=== PATIENT | male | born 1960 | race Caucasian/White ===

== ENCOUNTER 2016-07-22 16:17 | Emergency (ER) | payer BC, SELFPAY ==
[2016-07-22] MEDS ORDERED: KETOROLAC 30 MG/ML VIAL (J1885) IV ONE (16:45)
[2016-07-22] MEDS ORDERED: ONDANSETRON 4MG/2ML VIAL (J2405) IV ONE (16:45)
[2016-07-22] MEDS: MORPHINE 4 MG/ML 1ML SYRINGE IV PRN ×2 (16:59→18:21)
[2016-07-22 17:11] LABS: BASO % 0.5 % (0.0-1.0); EOS # 0.1 K/mm3 (0.0-0.50); EOS % 1.1 % (0.0-3.0); LARGE UNSTAINED CELL # 0.1 K/mm3 (0.0-0.4); LARGE UNSTAINED CELL % 1.6 % (0.0-4.0); LYMPH # 1.7 K/mm3 (1.5-4.5); LYMPH % 28.8 % (24.0-44.0); MEAN CORPUSCULAR HEMOGLOBIN 31.1 pg (27.0-33.0); MEAN CORPUSCULAR HGB CONC 35.1 g/dl (32.0-36.5); MEAN CORPUSCULAR VOLUME 88.5 fl (80.0-96.0); MONO # 0.3 K/mm3 (0.0-0.8); MONO % 5.5 % (0.0-5.0); NEUTROPHILS # 3.6 K/mm3 (1.8-7.7); NEUTROPHILS % 62.5 % (36.0-66.0); PLATELET COUNT, AUTOMATED 176 k/mm3 (150-450); RED CELL DISTRIBUTION WIDTH 12.6 % (11.5-14.5); WHITE BLOOD COUNT 5.8 K/mm3 (4.0-10.0)
[2016-07-22 17:23] LABS: INR 0.97
[2016-07-22 17:24] LABS: ALBUMIN 4.3 GM/DL (3.2-5.2); ALBUMIN/GLOBULIN RATIO 1.39 (1.00-1.93); ALKALINE PHOSPHATASE 106 U/L (45-117); ALT/SGPT 70 U/L (12-78); ANION GAP 8 MEQ/L (8-16); AST/SGOT 36 U/L (15-37); BILIRUBIN,DIRECT 0.2 MG/DL (0.0-0.2); BILIRUBIN,TOTAL 1.1 MG/DL (0.2-1.0); BLOOD UREA NITROGEN 15 MG/DL (7-18); CALCIUM LEVEL 9.3 MG/DL (8.5-10.1); CARBON DIOXIDE LEVEL 27 MEQ/L (21-32); CHLORIDE LEVEL 105 MEQ/L (98-107); CREATININE FOR GFR 1.17 MG/DL (0.70-1.30); GLOMERULAR FILTRATION RATE > 60.0 (>56); GLUCOSE, FASTING 139 MG/DL (70-105); SODIUM LEVEL 140 MEQ/L (136-145); TOTAL PROTEIN 7.4 GM/DL (6.4-8.2)
[2016-07-22 17:59] VITALS: BP 155/101
--- NOTE | 2016-07-22 18:06 | REP ---
CT ABDOMEN AND PELVIS WITHOUT CONTRAST: CT abdomen and pelvis was performed without oral or IV contrast. Sagittal and coronal reconstruction images are performed. Visualized lung bases demonstrate mild dependent atelectatic changes. The liver demonstrates diffuse fatty infiltration. A couple of tiny calcified granulomas are seen in the spleen. The adrenals and pancreas are grossly unremarkable. Two adjacent subcentimeter calculi are seen in the mid right renal collecting system. Tiny calculus is seen in the left upper pole collecting system and a марина like calcification is seen in the lower pole collecting system on the left. There is mild left hydroureteronephrosis caused by a 4 mm stone in the distal left ureter. No bladder calculi are seen. The urinary bladder is collapsed and not optimally evaluated. There is no abdominal aortic aneurysm with mild scattered atherosclerotic calcifications. There is no adenopathy. There is no free air or free fluid. There is no bowel wall thickening. There is no evidence of appendicitis. There appears to be surgical mesh in the anterior abdominal wall. There is no evidence of a pelvic mass. IMPRESSION: There is a 4 mm calculus in the distal left ureter causing mild left hydroureteronephrosis. Two intrarenal calcifications are seen bilaterally as well. There is no evidence of appendicitis. No free air or free fluid. Signed by Sukumar Gamez MD 07/23/2016 07:42 P
[2016-07-22] MEDS ORDERED: ZOFR4TAB3 PO (18:21)
[2016-07-22] MEDS ORDERED: FLOM5CAP PO (18:21)
[2016-07-22] MEDS ORDERED: PERC5TAB6 PO (18:21)
[2016-07-26] MEDS ORDERED: OXYB5TA PO (07:59)
[2016-07-26] MEDS ORDERED: LEVO500T32 PO (10:30)
== END 2016-07-22 19:05 | disposition home or self-care (01) ==
LOC: M ED 16:44
DX: N13.2 Hydronephrosis with renal and ureteral calculous obstruction (principal); N23 Unspecified renal colic
CPT/HCPCS: 74176; 80048; 80076; 81001; 83690; 85025; 85610; 87086; 96374; 96375; 96376; 99283; J1885; J2405

== ENCOUNTER 2016-07-24 14:32 | Inpatient (IN) | payer BC ==
[~2016-07-24] VITALS: Ht 177.8 cm; Wt 100.4 kg
[2016-07-24] MEDS: TAMSULOSIN 0.4 MG CAP PO SCH (09:00)
[~2016-07-24 14:32] MED LIST: FLOM5CAP PO; PERC5TAB12 PO; ZOFR4TAB3 PO
[2016-07-24] MEDS ORDERED: MORPHINE 4 MG/ML 1ML SYRINGE IV ONE (15:15)
[2016-07-24] MEDS ORDERED: NS 1,000 ML IV ONE (15:15)
[2016-07-24 15:37] LABS: BASO % 0.2 % (0.0-1.0); EOS # 0.1 K/mm3 (0.0-0.50); EOS % 0.6 % (0.0-3.0); LARGE UNSTAINED CELL # 0.1 K/mm3 (0.0-0.4); LARGE UNSTAINED CELL % 0.5 % (0.0-4.0); LYMPH # 0.8 K/mm3 (1.5-4.5); LYMPH % 6.1 % (24.0-44.0); MEAN CORPUSCULAR HEMOGLOBIN 30.6 pg (27.0-33.0); MEAN CORPUSCULAR HGB CONC 34.8 g/dl (32.0-36.5); MEAN CORPUSCULAR VOLUME 87.8 fl (80.0-96.0); MONO # 0.5 K/mm3 (0.0-0.8); MONO % 4.7 % (0.0-5.0); NEUTROPHILS # 10.2 K/mm3 (1.8-7.7); NEUTROPHILS % 87.9 % (36.0-66.0); PLATELET COUNT, AUTOMATED 146 k/mm3 (150-450); RED CELL DISTRIBUTION WIDTH 12.8 % (11.5-14.5); WHITE BLOOD COUNT 11.6 K/mm3 (4.0-10.0)
--- NOTE | 2016-07-24 15:58 | REP ---
CT ABDOMEN AND PELVIS WITHOUT CONTRAST: CT abdomen and pelvis performed without oral or IV contrast, with sagittal and coronal reconstruction images performed. Comparison made with prior study of 07/22/2016. In the visualized lungs bases there are no areas of streaky atelectasis/infiltrate posteriorly. Liver demonstrates diffuse fatty infiltration. Spleen demonstrates a couple of tiny calcified granulomas. The adrenals and pancreas appear unremarkable. Right kidney demonstrates intrarenal calculi unchanged. Left kidney demonstrates mild hydronephrosis and there is also mild left hydroureter. This has mildly increased since the prior study of 07/22/2016. 4 mm calculus in the distal left ureter has not changed in position. There is new moderate degree or perinephric and periureteral inflammation and edema. No bladder calculus is seen. No bowel thickening is seen. The appendix is normal. IMPRESSION: New mild bibasilar atelectasis/infiltrate. 4 mm stone in the distal left ureter has not changed in position. There is mild increase in the mild hydroureteronephrosis. There is new streaky inflammation and edema around the left kidney and ureter. Signed by Sukumar Gamez MD 07/24/2016 04:31 P
[2016-07-24 15:59] LABS: ALBUMIN 4.1 GM/DL (3.2-5.2); ALBUMIN/GLOBULIN RATIO 1.41 (1.00-1.93); ALKALINE PHOSPHATASE 96 U/L (45-117); ALT/SGPT 48 U/L (12-78); ANION GAP 6 MEQ/L (8-16); AST/SGOT 18 U/L (15-37); BILIRUBIN,DIRECT 0.5 MG/DL (0.0-0.2); BILIRUBIN,TOTAL 2.1 MG/DL (0.2-1.0); BLOOD UREA NITROGEN 19 MG/DL (7-18); CALCIUM LEVEL 8.9 MG/DL (8.5-10.1); CARBON DIOXIDE LEVEL 29 MEQ/L (21-32); CHLORIDE LEVEL 103 MEQ/L (98-107); CREATININE FOR GFR 1.81 MG/DL (0.70-1.30); GLOMERULAR FILTRATION RATE 41.5 (>56); GLUCOSE, FASTING 136 MG/DL (70-105); POTASSIUM SERUM 4.2 MEQ/L (3.5-5.1); SODIUM LEVEL 138 MEQ/L (136-145)
[2016-07-24 16:58] LABS: FREE T4 0.94 NG/DL (0.76-1.46); PHOSPHORUS LEVEL 3.1 MG/DL (2.5-4.9)
--- NOTE | 2016-07-24 17:05 | REP ---
Chest one-view HISTORY: Congestive heart failure Comparison: None The lungs are clear. The heart is upper limits of normal in size. The pulmonary vasculature is normal in appearance. Impression: No acute disease. Signed by Garcia Nuñez MD 07/24/2016 04:57 P
[2016-07-24] MEDS ORDERED: OXYC1TAB23 PO (17:09)
[2016-07-24] MEDS ORDERED: FLOM5CAP PO (17:09)
[2016-07-24] MEDS ORDERED: ONDA4TAB6 PO (17:09)
--- NOTE | 2016-07-24 17:25 | SMCUROLCON ---
Urology Consultation General Date of Consultation 07/24/16 Reason For Consultation This patient is seen for Hydroureteronephrosis. History of Present Illness This is a 56 y/o M w/ a PMH significant for kidney stones (s/p ureteroscopy w/ laser lithotripsy about 5 years ago), coming in to the ER for the second time in a week w/ severe left flank pain. He came in 2 days ago and was found to have a 4mm obstructing distal left ureteral stone w/ mild hydroureteronephrosis. He was sent home w/ pain meds and flomax. He never passed the stone. He notes that today the pain worsened and that he has not been able to keep any food down for 2 days. He denies dysuria. He denies hematuria. His urine culture from 2 days ago was negative. Of note, while in the ED, he had a run of V tach. The patient denies chest pain or SOB. He does note that he has had chest pain a few times in the past. He has never had it worked up. Past Medical History Medical History kidney stones Surgical Hstory ureteroscopy, hernia repair Medications Current Medications Current Medications Home Med (Med Rec Complete!) ASDIRECTED XX ; Start 07/24/16 at 17:15; Stop at 17:15; Status DC Allergies Allergies: Coded Allergies: No Known Allergies (Unverified , 07/22/16) Review of Systems Constitutional: Denies: Fever, Chills, Sweats Skin: Denies: Rash, Lesions, Breakdown, Nail Changes Pulmonary: Denies: Dyspnea, Cough Cardiovascular: Denies Chest Pain Gastrointestinal: Reports: Nausea, Abdominal Pain Genitourinary: Denies: Dysuria, Frequency, Incontinence, Hematuria Musculoskeletal: Reports: Back Pain Psych: Reports: Mood Normal Physical Examination General Exam: Alert, Cooperative, No Acute Distress ENT EXAM: Atraumatic Chest Exam: Clear to auscultation Heart Exam: Rate Normal Abdomen Exam: Soft, Tenderness (diffuse abdominal tenderness) Skin Exam: Nl turgor and temperature Neuro Exam: Normal Speech Psych Exam: Mental status NL, Mood NL Vital Signs/I&O Vital Signs Date Time Temp Pulse Resp B/P (MAP) Pulse Ox O2 Delivery O2 Flow Rate FiO2 07/24/16 15:48 16 07/24/16 15:00 07/24/16 14:44 98.3 77 95 Room Air Laboratory Data 24H Labs Laboratory Tests 2 07/24/16 15:27: White Blood Count 11.6H, Red Blood Count 4.46, Hemoglobin 13.6L, Hematocrit 39.2L, Mean Corpuscular Volume 87.8, Mean Corpuscular Hemoglobin 30.6, Mean Corpuscular Hemoglobin Concent 34.8, Red Cell Distribution Width 12.8, Platelet Count 146L, Neutrophils (%) (Auto) 87.9H, Lymphocytes (%) (Auto) 6.1L, Monocytes (%) (Auto) 4.7, Eosinophils (%) (Auto) 0.6, Basophils (%) (Auto) 0.2, Neutrophils # (Auto) 10.2H, Lymphocytes # (Auto) 0.8L, Monocytes # (Auto) 0.5, Eosinophils # (Auto) 0.1, Basophils # (Auto) 0.0, Large Unclassified Cells % 0.5 , Large Unclassified Cells # 0.1, Anion Gap 6L, Glomerular Filtration Rate 41.5L , Calcium Level 8.9, Phosphorus Level 3.1, Magnesium Level 2.0, Aspartate Amino Transf (AST/SGOT) 18, Alanine Aminotransferase (ALT/SGPT) 48, Alkaline Phosphatase 96, Total Bilirubin 2.1#H, Direct Bilirubin 0.5H, Troponin I < 0.02 , Total Protein 7.0, Albumin 4.1, Albumin/Globulin Ratio 1.41, Lipase 147, Thyroid Stimulating Hormone (TSH) 0.785, Free Thyroxine 0.94 CBC/BMP Laboratory Tests 07/24/16 15:27 Red Blood Count 4.46, Mean Corpuscular Volume 87.8, Mean Corpuscular Hemoglobin 30.6, Mean Corpuscular Hemoglobin Concent 34.8, Red Cell Distribution Width 12.8 , Neutrophils (%) (Auto) 87.9 H, Lymphocytes (%) (Auto) 6.1 L, Monocytes (%) ( Auto) 4.7, Eosinophils (%) (Auto) 0.6, Basophils (%) (Auto) 0.2, Neutrophils # ( Auto) 10.2 H, Lymphocytes # (Auto) 0.8 L, Monocytes # (Auto) 0.5, Eosinophils # (Auto) 0.1, Basophils # (Auto) 0.0 Assessment This is a 56 y/o M w/ an obstructing 4mm distal left ureteral stone w/ a bump in Cr to 1.8 from 1.2 a few days ago and V tach. I explained to the patient that he will need surgery for the stone, but we will await medical and possible cardiac clearance given the run of V tach. Plan - agree w/ admission to hospitalist service for medical and possible cardiac clearance - morphine/percocet prn pain - please strain all urine - continue flomax - keep patient hydrated - NPO at midnight - possible OR tomorrow for cystoscopy, left ureteroscopy w/ laser lithotripsy and left ureteral stent placement pending clearance THUY NGUYEN MD Jul 24, 2016 17:25
[2016-07-24] MEDS ORDERED: BISACODYL 5 MG TAB PO PRN (17:30)
[2016-07-24] MEDS ORDERED: ACETAMINOPHEN TAB 650MG DOSE (2X325MG) PO PRN (17:30)
[2016-07-24] MEDS: MORPHINE 2 MG/ML 1ML SYRINGE IV PRN ×2 (18:15→23:48)
[2016-07-24 18:54] VITALS: BP 168/94
[2016-07-24 19:35] VITALS: BP 161/87
--- NOTE | 2016-07-24 21:05 | HPE ---
DATE OF ADMISSION: 07/24/2016 PRIMARY CARE PHYSICIAN: Patient has no primary care physician (PCP). CHIEF COMPLAINT: Left testicular and inguinal pain as well as back pain. HISTORY OF PRESENT ILLNESS: Mr. Brownlee is a 56-year-old male with no past medical history who presented to emergency room (ER) due to experiencing severe left testicular and inguinal pain as well back. Patient expressed that his symptoms started on Thursday with instant severe pain (10/10) on the left testicle as well as left inguinal area. Patient expressed that due to severity of the pain, he came to the ER. On the same day, CT of abdomen and pelvis without contrast indicated a 4 mm calculus in the distal left ureter, causing mild left hydroureter. Patient was discharged home with Zofran as well as Percocet 5/325 and Flomax. Patient expressed that after taking Percocet he felt better; however , patient started again at 4 p.m. yesterday with instant pain of 10/10 in the left testicular and inguinal area. Also patient has been experiencing bilateral lower back pain. Patient expressed that the pain was increased and decreased throughout the day. Patient expressed that he could not sleep last night due to the pain, and patient could not tolerate the pain, therefore came to the ER. Patient denies hematuria, anuria, or polyuria; however, patient expressed that he has been experiencing fevers, chills, and night sweats. Patient denies palpitations, racing or skipping heartbeat. Patient denies syncope, seizure-type activities, or lightheadedness or dizziness. Patient denies sick contacts. Patient denies pain with urination. Patient also expressed that he has lost his appetite and cannot tolerate food due to the pain. ALLERGIES: No known allergies. PAST MEDICAL HISTORY: One episode of chest pain a long time ago. SURGERIES: 1. Patient had umbilical hernia repair. 2. Left inguinal hernia repair. 3. Right inguinal hernia repair. PAST MEDICAL HISTORY: None. SOCIAL HISTORY: Patient is from [place] and lives with his , his son, and his daughter. Patient denies history of smoking cigarettes or using tobacco products. Patient also denies illicit drug use; however, expressed that he drinks alcohol occasionally. 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 FAMILY HISTORY: Patient's son and daughter are healthy. Patient has eight sisters and one brother. Patient's older sister has abdominal cancer; however, the other sisters and brother are healthy. Patient's father due to Alzheimer. Patient's mother is still alive and healthy for her age. MEDICATIONS: - Zofran 4 mg by mouth every 4 hours as needed for nausea - Percocet 5/325 one tablet by mouth every 6 hours as needed for pain - Flomax 0.4 mg by mouth daily REVIEW OF SYSTEMS: GENERAL: Patient expressed that has been experiencing fevers, chills, night sweats; however, patient denies weight loss or weight gain. HEENT: Patient denies acute vision or hearing changes. Patient denies headache, lightheadedness, or dizziness. Patient also denies problem with chewing food or sinusitis. NECK: Patient denies lumps, bumps, or decreased range of motion of his neck. HEART: Patient denies palpitations, racing or skipping heartbeat, or chest pain. LUNGS: Patient denies shortness of breath, coughing, or wheezing. ABDOMEN: Patient expressed that he has been experiencing lower abdominal pain, especially in the left inguinal area, close to the left lower quadrant and left inguinal area. Patient denies nausea, vomiting, diarrhea, constipation, melena, hematochezia, hemoptysis; however, patient expressed that he has lost his appetite. NEUROLOGIC: Patient denies history of transient ischemic attack (TIA), seizure-type activities. PHYSICAL EXAMINATION: VITAL SIGNS: Temperature 98.3, pulse 77, respiratory rate 18, blood pressure 155/83, pulse oximetry 95 on room air. GENERAL APPEARANCE: Patient was lying in bed in acute distress due to pain. Patient was awake, alert, and oriented to time, place, and person. HEENT: Normocephalic, atraumatic. Pupils were equal and reactive to light. Oral mucosa was moist. NECK: Soft, supple. No lymphadenopathy. No thyromegaly. No jugular venous distention (JVD). HEART: Regular rate and rhythm, normal S1, S2. LUNGS: Clear breath sounds bilaterally. Good air movement. ABDOMEN: Soft, tender to palpation mostly on the lower abdominal quadrants. Positive bowel sounds in all quadrants. EXTREMITIES: No lower extremity edema. +2 pulses in both lower extremities. Patient has decreased range of motion of the left lower extremity compared to right lower extremity due to testicular and inguinal pain. BACK: Patient has tenderness to palpation on the left lower back compared to right in the lumbar area. NEUROLOGIC: Cranial nerves II-XII were intact. No focal deficiencies. LABORATORY DATA: White blood cells 11.6, red blood cells 4.46, hemoglobin 13.6, hematocrit 39.2, MCV 87.8, MCH 30.6, MCHC 34.8, RDW 12.8, platelet count 146, neutrophil percentage 87.9, lymphocyte percentage 3.1, monocyte percentage 4.7, eosinophil percentage 0.6, basophil percentage 0.2, leukocyte percentage 0.5. Sodium 138, potassium 4.2, chloride 103, carbon dioxide 29, anion gap 6, BUN 19, creatinine 1.81, glomerular filtration rate 41.5, fasting glucose 136, calcium 8.9, phosphorus 3.1, magnesium 2. Total bilirubin 2.1, direct bilirubin 0.5, AST 18, ALT 48, alkaline phosphatase 96. Troponin I less than 0.02. Total protein 7, albumin 4.1, lipase 147. TSH 0.785, free T4 of 0.94. Blood culture is pending. Chest x-ray indicated no acute disease. CT of abdomen and pelvis without contrast shows new mild bibasilar atelectasis/infiltration, 4 mm stone in the distal left ureter and has not changed in position compared to previous study, which was done on 07/22/2016. There is a mild increase in the mild hydroureteronephrosis. ASSESSMENT AND PLAN: 1. Left hydroureteronephrosis. This is possibly secondary to a stone in the distal left ureter. Dr. Gama has been consulted by ER, who has seen the patient. During ER stay, patient had episodes of tachycardia. Dr. Gama expressed that if patient is not cleared for procedure, patient may have to receive a stent tomorrow. At this time we will make the patient nothing by mouth after midnight. Patient is also on intravenous (IV) fluid. Patient's urinalysis (UA), which was performed on 07/22/2016 as well as urine culture, did not indicate bacterial infection. Based on recommendation from Dr. Gama, we have not started patient on any antibiotic at this time; however, we have ordered UA and urine culture for this visit, and the result is pending at this time. Also, we will manage the pain with Percocet, morphine. Also we will continue patient on Flomax. 2. Leukocytosis. This is possibly secondary to stress; however, we have ordered UA and urine culture as well as blood culture. Result is pending at this time. No antibiotic is indicated. 3. Acute renal failure. This is possibly secondary to postrenal azotemia due to obstructing stone. At this point, we will continue IV fluid. Patient will be nothing by mouth from midnight for tomorrow's procedure; however, if patient is not cleared per cardiology, patient will receive the stent. 4. Cardiac arrhythmia. During the ER stay, patient had about 18 beats of ventricular tachycardia. This event has been recorded; however, EKG shows sinus rhythm with the possible old inferior myocardial infarction. Based on patient's history, he had one episode of chest pain several years ago, and they have done further investigation in [place], including a stress test and according to him everything was negative. The first set of cardiac markers was negative. We will continue with the cardiac markers for two more sets. Also we have ordered thyroid-stimulating hormone (TSH) and free T4, which were negative. Magnesium level also is in normal range. We have ordered echocardiogram. Result is pending at this time. 5. Deep vein thrombosis (DVT) prophylaxis. Due to the procedure, at this time patient is on thromboembolic deterrents (TEDs) and sequentials. My preceptor for this patient encounter was Dr. Kendell Martin. The preceptor was physically present in the building during the encounter and was fully available as needed. All aspects of the patient interview, examination, medical decision making process, and medical care plan development were reviewed and approved by the preceptor. The preceptor is aware and concurs with the plan as stated in the body of this note and will attest to such by his/her co-signature. SANJUANA
[2016-07-24 23:37] VITALS: BP 156/89
[2016-07-25] VITALS (8 sets, daily range): BP systolic 130–191; BP diastolic 78–99
[2016-07-25] MEDS: PERCOCET 5MG/325MG TAB PO PRN ×3 (00:16→09:07)
[2016-07-25] MEDS: MORPHINE 2 MG/ML 1ML SYRINGE IV PRN ×4 (02:04→15:31)
[2016-07-25 05:25] LABS: BASO % 0.2 % (0.0-1.0); EOS # 0.1 K/mm3 (0.0-0.50); EOS % 0.6 % (0.0-3.0); LARGE UNSTAINED CELL % 0.4 % (0.0-4.0); LYMPH # 0.8 K/mm3 (1.5-4.5); LYMPH % 6.1 % (24.0-44.0); MEAN CORPUSCULAR HEMOGLOBIN 30.8 pg (27.0-33.0); MEAN CORPUSCULAR HGB CONC 34.7 g/dl (32.0-36.5); MEAN CORPUSCULAR VOLUME 88.9 fl (80.0-96.0); MONO # 0.7 K/mm3 (0.0-0.8); MONO % 5.6 % (0.0-5.0); NEUTROPHILS # 10.3 K/mm3 (1.8-7.7); NEUTROPHILS % 87.3 % (36.0-66.0); PLATELET COUNT, AUTOMATED 153 k/mm3 (150-450); WHITE BLOOD COUNT 11.8 K/mm3 (4.0-10.0)
[2016-07-25 05:53] LABS: ALBUMIN 3.9 GM/DL (3.2-5.2); ALBUMIN/GLOBULIN RATIO 1.18 (1.00-1.93); ALKALINE PHOSPHATASE 92 U/L (45-117); ALT/SGPT 40 U/L (12-78); ANION GAP 6 MEQ/L (8-16); AST/SGOT 13 U/L (15-37); BILIRUBIN,TOTAL 2.7 MG/DL (0.2-1.0); BLOOD UREA NITROGEN 18 MG/DL (7-18); CALCIUM LEVEL 8.8 MG/DL (8.5-10.1); CARBON DIOXIDE LEVEL 26 MEQ/L (21-32); CHLORIDE LEVEL 101 MEQ/L (98-107); CREATININE FOR GFR 1.64 MG/DL (0.70-1.30); GLOMERULAR FILTRATION RATE 46.5 (>56); GLUCOSE, FASTING 125 MG/DL (70-105); MAGNESIUM LEVEL 2.1 MG/DL (1.8-2.4); POTASSIUM SERUM 4.3 MEQ/L (3.5-5.1); SODIUM LEVEL 133 MEQ/L (136-145); TOTAL PROTEIN 7.2 GM/DL (6.4-8.2)
[2016-07-25] MEDS: NS 1,000 ML IV SCH ×2 (06:48→08:58)
--- NOTE | 2016-07-25 08:15 | ECGEPIP ---
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
[2016-07-25] MEDS: TAMSULOSIN 0.4 MG CAP PO SCH (09:06)
--- NOTE | 2016-07-25 12:30 | IPNPDOC ---
Subjective Date Seen The patient was seen on 07/25/16. Subjective Chief Complaint/HPI The patient is a 56-year-old male admitted with a reason for visit of Hydroureteronephrosis. Events since last encounter continues to have abdominal pain , has not passed the stone, no fever or chills , no chest pain or shortness of breath , telemetry did not show any arrhythmia Objective Physical Examination General Exam: Positive: Alert, Cooperative, No Acute Distress Eye Exam: Positive: PERRLA, Conjunctiva & lids normal, EOMI, Negative: Sclera icteric ENT Exam: Positive: Atraumatic, Mucous membr. moist/pink, Pharynx Normal Neck Exam: Positive: Supple, Negative: JVD, thyromegaly Chest Exam: Positive: Clear to auscultation, Normal air movement Heart Exam: Positive: Rate Normal, Regular Rhythm, Normal S1, Normal S2, Negative: Murmurs, Rubs Telemetry: Positive: No significant arrhythmia Abdomen Exam: Positive: BS Hypoactive, Soft, Tenderness Extremity Exam: Positive: Normal pulses, Negative: Clubbing, Cyanosis, Edema Skin Exam: Positive: Nl turgor and temperature, Negative: Rash, Breakdown Assessment /Plan Problems (1) Hydroureteronephrosis Status: Acute Problem Text: on the left due to lower ureteral stone 4 mm which has not passed . present for 3 days. patient going for cystoscopy later today. Patient had NSVT one run in the ED , no arrhythmias overnight on telemetry. No history of CAD or CHF, no signs of acute coronary syndrome. patient is low cardiac risk for the proposed procedure and is medically optimized to go OR . (2) Renal stones Status: Chronic Problem Text: has history of kidney stones s/p ureteroscopy w/ laser lithotripsy about 5 years ago (3) Acute kidney injury Status: Acute Problem Text: due to obstructive uropathy. will continue with IVF (4) Calculus of ureter Status: Acute Problem Text: for cystoscopy, left ureteroscopy w/ laser lithotripsy and left ureteral stent placement later today continue with flomax (5) Ventricular tachycardia Status: Resolved Problem Text: Had NSVT on the monitor in ED yesterday , asymptomatic. NO abnormality on telemetry overnight EKG sinus rhythm and cardiac enzymes are negative. Plan/VTE VTE Prophylaxis Ordered?: Yes VS, I&O, 24H, Fishbone Vital Signs/I&O Vital Signs Date Time Temp Pulse Resp B/P (MAP) Pulse Ox O2 Delivery O2 Flow Rate FiO2 07/25/16 09:53 18 Room Air 07/25/16 08:00 98.9 107 158/80 (106) 92 I&O- Last 24 Hours up to 6 AM 07/25/16 05:59 Intake Total 1750 ml Output Total 875 ml Balance 875 ml Laboratory Data 24H LABS Laboratory Tests 2 07/24/16 15:27: White Blood Count 11.6H, Red Blood Count 4.46, Hemoglobin 13.6L, Hematocrit 39.2L, Mean Corpuscular Volume 87.8, Mean Corpuscular Hemoglobin 30.6, Mean Corpuscular Hemoglobin Concent 34.8, Red Cell Distribution Width 12.8, Platelet Count 146L, Neutrophils (%) (Auto) 87.9H, Lymphocytes (%) (Auto) 6.1L, Monocytes (%) (Auto) 4.7, Eosinophils (%) (Auto) 0.6, Basophils (%) (Auto) 0.2, Neutrophils # (Auto) 10.2H, Lymphocytes # (Auto) 0.8L, Monocytes # (Auto) 0.5, Eosinophils # (Auto) 0.1, Basophils # (Auto) 0.0, Large Unclassified Cells % 0.5 , Large Unclassified Cells # 0.1, Anion Gap 6L, Glomerular Filtration Rate 41.5L , Calcium Level 8.9, Phosphorus Level 3.1, Magnesium Level 2.0, Aspartate Amino Transf (AST/SGOT) 18, Alanine Aminotransferase (ALT/SGPT) 48, Alkaline Phosphatase 96, Total Bilirubin 2.1#H, Direct Bilirubin 0.5H, Troponin I < 0.02 , Total Protein 7.0, Albumin 4.1, Albumin/Globulin Ratio 1.41, Lipase 147, Thyroid Stimulating Hormone (TSH) 0.785, Free Thyroxine 0.94 07/24/16 21:17: Troponin I < 0.02, Total Creatine Kinase 84, Creatine Kinase MB 1.0, Creatine Kinase MB Relative Index 1.19 07/25/16 05:11: White Blood Count 11.8H, Red Blood Count 4.50, Hemoglobin 13.9L, Hematocrit 40.0L, Mean Corpuscular Volume 88.9, Mean Corpuscular Hemoglobin 30.8, Mean Corpuscular Hemoglobin Concent 34.7, Red Cell Distribution Width 13.0, Platelet Count 153, Neutrophils (%) (Auto) 87.3H, Lymphocytes (%) (Auto) 6.1L, Monocytes (%) (Auto) 5.6H, Eosinophils (%) (Auto) 0.6, Basophils (%) (Auto) 0.2, Neutrophils # (Auto) 10.3H, Lymphocytes # (Auto) 0.8L, Monocytes # (Auto) 0.7, Eosinophils # (Auto) 0.1, Basophils # (Auto) 0.0, Large Unclassified Cells % 0.4 , Large Unclassified Cells # 0.0, Anion Gap 6L, Glomerular Filtration Rate 46.5L , Calcium Level 8.8, Magnesium Level 2.1, Aspartate Amino Transf (AST/SGOT) 13L , Alanine Aminotransferase (ALT/SGPT) 40, Alkaline Phosphatase 92, Total Bilirubin 2.7H, Troponin I < 0.02, Total Protein 7.2, Albumin 3.9, Albumin/ Globulin Ratio 1.18, Total Creatine Kinase 77, Creatine Kinase MB 1.0, Creatine Kinase MB Relative Index 1.29, Blood Urea Nitrogen 18, Creatinine 1.64H, Sodium Level 133L, Potassium Level 4.3, Chloride Level 101, Carbon Dioxide Level 26 CBC/BMP Laboratory Tests 07/24/16 15:27 Red Blood Count 4.46, Mean Corpuscular Volume 87.8, Mean Corpuscular Hemoglobin 30.6, Mean Corpuscular Hemoglobin Concent 34.8, Red Cell Distribution Width 12.8 , Neutrophils (%) (Auto) 87.9 H, Lymphocytes (%) (Auto) 6.1 L, Monocytes (%) ( Auto) 4.7, Eosinophils (%) (Auto) 0.6, Basophils (%) (Auto) 0.2, Neutrophils # ( Auto) 10.2 H, Lymphocytes # (Auto) 0.8 L, Monocytes # (Auto) 0.5, Eosinophils # (Auto) 0.1, Basophils # (Auto) 0.0 07/25/16 05:11 Red Blood Count 4.50, Mean Corpuscular Volume 88.9, Mean Corpuscular Hemoglobin 30.8, Mean Corpuscular Hemoglobin Concent 34.7, Red Cell Distribution Width 13.0 , Neutrophils (%) (Auto) 87.3 H, Lymphocytes (%) (Auto) 6.1 L, Monocytes (%) ( Auto) 5.6 H, Eosinophils (%) (Auto) 0.6, Basophils (%) (Auto) 0.2, Neutrophils # (Auto) 10.3 H, Lymphocytes # (Auto) 0.8 L, Monocytes # (Auto) 0.7, Eosinophils # (Auto) 0.1, Basophils # (Auto) 0.0, Calcium Level 8.8, Aspartate Amino Transf (AST/SGOT) 13 L, Alanine Aminotransferase (ALT/SGPT) 40, Total Creatine Kinase 77, Alkaline Phosphatase 92, Total Bilirubin 2.7 H, Total Protein 7.2, Albumin 3.9 Microbiology Microbiology 07/24/16 Blood Culture, Received Pending 07/24/16 Blood Culture, Received Pending FRACISCO FRANCIS MD Jul 25, 2016 12:30
[2016-07-25] MEDS ORDERED: CONRAY-60 60% 50ML VIAL (Q9961) As Ordered ONE (16:53)
[2016-07-25] MEDS ORDERED: ceFAZolin 2 GM/D5W 50 ML IV BAG (J0690) As Ordered ONE (17:03)
[2016-07-25] MEDS ORDERED: fentaNYL 100 MCG/2 ML INJECTION (J3010) As Ordered ONE ×3 (17:18→17:34)
[2016-07-25] MEDS ORDERED: PROPOFOL 200 MG/20 ML VIAL As Ordered ONE (17:18)
[2016-07-25] MEDS ORDERED: LIDOCAINE 2% INJ 100 MG/5 ML SDV (FOR ANES.) As Ordered ONE (17:19)
[2016-07-25] MEDS ORDERED: METOCLOPRAMIDE INJ 10MG/2ML VIAL (J2765) As Ordered ONE (17:19)
[2016-07-25] MEDS ORDERED: ONDANSETRON 4MG/2ML VIAL (J2405) As Ordered ONE (17:19)
[2016-07-25] MEDS ORDERED: DESFLURANE 240 ML INHALANT As Ordered ONE (17:31)
[2016-07-25] MEDS ORDERED: fentaNYL 100 MCG/2 ML INJECTION (J3010) IV PRN (18:45)
[2016-07-25] MEDS ORDERED: ONDANSETRON 4MG/2ML VIAL (J2405) IV PRN (18:45)
[2016-07-25] MEDS ORDERED: LR 1,000 ML IV SCH (18:45)
[2016-07-25] MEDS ORDERED: PERCOCET 5MG/325MG TAB PO PRN (18:45)
[2016-07-25] MEDS ORDERED: oxyBUTYnin 5 MG TAB PO PRN (18:45)
[2016-07-25] MEDS ORDERED: HYDROmorphone HCL 1 MG/ML SYRINGE (J1170) IV PRN (18:45)
--- NOTE | 2016-07-25 19:13 | REP ---
Retrograde pyelogram: Three views. History: Hydroureterolithiasis. Findings: A sequence of three fluoroscopically obtained intraprocedurally spot radiographs of the left abdomen document left ureteral guidewire cannulation, contrast injection, and double pigtail stent placement. 41 seconds of fluoroscopy time is reported. Signed by Rajiv Quinones MD 07/25/2016 07:33 P
[2016-07-26] VITALS: BP 145/83
[2016-07-26] MEDS: NS 1,000 ML IV SCH ×2 (01:23→09:28)
[2016-07-26 04:00] VITALS: BP 134/78
[2016-07-26 05:30] LABS: BASO % 0.2 % (0.0-1.0); EOS % 0.6 % (0.0-3.0); LARGE UNSTAINED CELL # 0.1 K/mm3 (0.0-0.4); LARGE UNSTAINED CELL % 1.3 % (0.0-4.0); LYMPH # 1.4 K/mm3 (1.5-4.5); LYMPH % 17.2 % (24.0-44.0); MEAN CORPUSCULAR HEMOGLOBIN 30.4 pg (27.0-33.0); MEAN CORPUSCULAR HGB CONC 34.4 g/dl (32.0-36.5); MEAN CORPUSCULAR VOLUME 88.3 fl (80.0-96.0); MONO # 0.6 K/mm3 (0.0-0.8); MONO % 7.4 % (0.0-5.0); NEUTROPHILS # 5.5 K/mm3 (1.8-7.7); NEUTROPHILS % 73.2 % (36.0-66.0); PLATELET COUNT, AUTOMATED 153 k/mm3 (150-450); RED CELL DISTRIBUTION WIDTH 12.7 % (11.5-14.5); WHITE BLOOD COUNT 7.5 K/mm3 (4.0-10.0)
[2016-07-26 05:39] LABS: ALBUMIN 3.3 GM/DL (3.2-5.2); ALBUMIN/GLOBULIN RATIO 0.97 (1.00-1.93); ALKALINE PHOSPHATASE 109 U/L (45-117); ALT/SGPT 40 U/L (12-78); ANION GAP 5 MEQ/L (8-16); AST/SGOT 26 U/L (15-37); BILIRUBIN,TOTAL 2.5 MG/DL (0.2-1.0); BLOOD UREA NITROGEN 18 MG/DL (7-18); CALCIUM LEVEL 8.9 MG/DL (8.5-10.1); CARBON DIOXIDE LEVEL 29 MEQ/L (21-32); CHLORIDE LEVEL 103 MEQ/L (98-107); CREATININE FOR GFR 1.19 MG/DL (0.70-1.30); GLOMERULAR FILTRATION RATE > 60.0 (>56); GLUCOSE, FASTING 103 MG/DL (70-105); MAGNESIUM LEVEL 2.2 MG/DL (1.8-2.4); POTASSIUM SERUM 3.9 MEQ/L (3.5-5.1); SODIUM LEVEL 137 MEQ/L (136-145); TOTAL PROTEIN 6.7 GM/DL (6.4-8.2)
[2016-07-26 07:05] VITALS: BP 154/91
[2016-07-26] MEDS ORDERED: OXYB5TAB10 PO (07:59)
[2016-07-26] MEDS ORDERED: LEVO500T3 PO (10:30)
--- NOTE | 2016-07-26 14:41 | RO ---
DATE OF PROCEDURE: 07/25/2016 PREPROCEDURE DIAGNOSIS: Obstructing left ureteral stone. POSTPROCEDURE DIAGNOSIS: Obstructing left ureteral stone. PROCEDURE: Cystoscopy, left ureteroscopy with basket extraction of stones, left retrograde pyelogram with intraoperative interpretation of images, left ureteral stent placement. SURGEON: Pedro Gama MD HEAD BONE GRINDER: None. ANESTHESIA: General. OPERATIVE INDICATIONS: This is a 56-year-old male who presented to the emergency room with obstructing 4 mm distal left ureteral stone, as well as another nonobstructing stone measuring around 3 mm in his upper left kidney. He did have a bump in his serum creatinine because of that. Because of that, it was recommended that he be brought to the operating room today for the above-listed procedures. DESCRIPTION OF PROCEDURE: The patient was brought to the operating room, and general anesthesia was induced. Prophylactic antibiotics were infused. He was then placed in the dorsal lithotomy position and prepped and draped in the usual sterile fashion. A rigid cystoscope was inserted into the urethral meatus and advanced into the bladder. Once within the bladder, a wire was advanced up the left collecting system. This wire was secured to the drape to serve as a safety wire. We then went up the left collecting system with a short semirigid ureteroscope; and within the distal left ureter, the 4 mm stone was seen. This stone was then grasped with a basket and withdrawn from the ureter. At this point, a ureteral access sheath was advanced over the wire up into the left collecting system. We then went up the access sheath with a flexible ureteroscope, and I examined the kidney thoroughly. A few tiny stone fragments were seen, as well as a 3 mm stone in the upper pole calyx. This stone was then grasped with a basket and withdrawn. At this point, a retrograde pyelogram was performed, and it was notable for mild hydronephrosis and no extravasation. I then withdrew the ureteroscope back down the kidney and the ureter, and no additional stones were seen within the ureter. The ureteral access sheath was removed, and no stones were seen behind the access sheath. At this point, the previously-placed wire was utilized to advance a 6-Korean x 22-32 cm double J ureteral stent up into the left collecting system. The wire was then removed, and there were adequate curls of the stent in the left renal pelvis and in the bladder. The bladder was then emptied of all fluid, and this marked the conclusion of the procedure. The patient was then taken out of the dorsal lithotomy position, awakened from anesthesia, and transported to the recovery room in stable condition. ESTIMATED BLOOD LOSS: 0 mL. COMPLICATIONS: None. SPECIMENS: None. PLAN: The patient will be admitted back to the floor overnight. He is on the hospitalist service, and they will monitor him for improvement in his serum creatinine. Assuming his laboratories look fine in the morning, he will be sent home with the plan for him to followup with his local urologist in [place] when he returns home for stent removal. SANJUANA
--- NOTE | 2016-07-27 09:57 | DSES ---
DATE OF ADMISSION: 07/24/2016 DATE OF DISCHARGE: 07/26/2016 PRIMARY CARE PHYSICIAN: At [place] DISCHARGE DIAGNOSES: Left hydroureteronephrosis. Left ureteral stone, size 4 mm. Acute kidney injury due to obstructive uropathy. Renal stones. Non-sustained ventricular tachycardia (v tach) in telemetry. HOSPITAL COURSE This is a 56-year-old male from [place], who was in the [place] area for work, presented to the emergency room with sudden onset left inguinal and flank pain, radiating to the left testicular region for the past 3 days. The patient was initially seen in the emergency room (ER) when he had a CT of the abdomen done which showed left-sided distal ureteric stone of size 4 mm with mild left ureterohydronephrosis. Because of the size of the stone, it was expected to pass out and so the patient was managed in the emergency department (ED) and discharged home with pain medications. However, over the next day, the pain again came back, so the patient was back in the ED. The repeat CT scan 2 days later showed stone still present in the same position and increasing left hydroureteronephrosis. Also, now the patient had developed acute kidney injury, creatinine has increased from 1.1 to 1.8, so the patient was admitted to the hospital. The patient was seen by urology and underwent cystoscopy, ureteroscopy, left ureteral stent placement and basket extraction of the stone. The patient did well after the surgery with resolution of his symptoms and improvement in his renal failure. At present, the patient is stable, functionally at baseline without any complaints. The patient needs to followup with his own urologist in [place] and the stent has to be removed within the 3 months. The patient also needs to followup with his own primary medical doctor (PMD) in [place]. The patient is planning to drive down to [place] today. The patient's urine culture done prior to procedure did not have any growth. PHYSICAL EXAMINATION: VITAL SIGNS: Temperature 98.9, pulse 72, respiratory rate 18, blood pressure 154/91, pulse oximetry 99% in room air. GENERAL: Patient awake, alert, oriented times three, lying down in bed in no acute distress. HEENT: Normocephalic, atraumatic. Moist mucous membranes. Anicteric eyes. CHEST: Clear to auscultation. CARDIOVASCULAR: S1, S2 regular. No rub, murmur or gallop. ABDOMEN: Obese, soft, nontender. Bowel sounds present. EXTREMITIES: No edema. LABORATORY DATA: WBC 7.5, hemoglobin 12.4, platelets 153. Sodium 137, potassium 3.9, chloride 103, bicarbonate 29, BUN 18, creatinine 1.1, glucose 103, calcium 8.9, magnesium 2.2, total bilirubin 2.5. AST, ALT normal. Alkaline phosphatase normal. Albumin 3.3 TSH normal. Coagulation profile normal. UA showed 1 WBC, numerous RBCs. Urine culture: No growth. CT abdomen and pelvis prior to procedure showed 4 mm stone in the distal left ureter, which is unchanged in position from the prior CT done on 07/22/2016. There is mild increase in the left hydroureteronephrosis with new streaky inflammation and edema around the left kidney and ureter. DISPOSITION: The patient is discharged home in stable condition. DISCHARGE INSTRUCTIONS: Patient is to followup with primary care provider in 1 week. Patient to followup with his own urology in 2 weeks. Regular diet. Activity as tolerated.
== END 2016-07-26 10:46 | disposition home or self-care (01) | DRG 443 ==
LOC: EDBD 14:32 → M ED 15:03 → M ED INP 16:54 → M PCU 18:38
PROVIDERS: ADMIT Internal Medicine; ATTEND Internal Medicine Nephrology
PROC: 0TC18ZZ Extirpation of Matter from Left Kidney, Via Natural or Artificial Opening Endoscopic (ICD-10-PCS; 2016-07-25)
PROC: 0T778DZ Dilation of Left Ureter with Intraluminal Device, Via Natural or Artificial Opening Endoscopic (ICD-10-PCS; 2016-07-25)
PROC: 0TC78ZZ Extirpation of Matter from Left Ureter, Via Natural or Artificial Opening Endoscopic (ICD-10-PCS; principal; 2016-07-25 17:00)
DX: N13.2 Hydronephrosis with renal and ureteral calculous obstruction (principal); I47.2 Ventricular tachycardia; N17.9 Acute kidney failure, unspecified